=== PATIENT | male | born 1955 | race Two or more races ===

== ENCOUNTER 2021-08-12 09:34 | Inpatient (IN) | payer BC ==
[2021-08-12] MEDS ORDERED: Aspirin Chewable 81 MG TAB ONE (10:23)
[2021-08-12 10:29] LABS: #Basophils 0.1 thou/uL (0.0-0.2); #Eosinphils 0.2 thou/uL (0.0-0.7); #Lymphocytes 1.2 thou/uL (1.20-3.40); #Monocytes 0.7 thou/uL (0.11-0.59); #Neutrophils 3.7 thou/uL (1.40-6.50); %Basophils 2.1 % (0.0-1.0); %Eosinophils 2.7 % (0.0-10.0); %Lymphocytes 20.6 % (21.0-51.0); %Neutrophils 63.5 % (42.0-75.0); Hemoglobin 16.7 g/dL (14.0-18.0); Mean Corpuscular HGB CONC 30.6 g/dL (32.0-36.0); Mean Corpuscular Volume 88.2 fL (78.0-98.0); Mean Platelet Volume 9.4 fL (7.4-10.4); Platelet Count 154 thou/uL (130-400); RBC Distribution Width 14.7 % (11.5-14.5); Red Blood Cell (RBC) Count 6.19 mill/uL (4.70-6.10); White Blood Cell (WBC) Count 5.9 thou/uL (4.8-10.8)
[2021-08-12 11:01] LABS: ALT (SGPT) 55 U/L (8-55); AST (SGOT) 44 U/L (5-34); Albumin 4.1 g/dL (3.4-4.8); Alkaline Phosphatase 55 U/L (40-110); Anion Gap 11 mmol/L (10-20); BUN (Urea Nitrogen) 18 mg/dL (8.4-25.7); Bilirubin, Total 1.2 mg/dL (0.2-1.2); CK (CPK) 63 U/L (30-200); Calc. Creatinine Clearance 0 mL/min (70-130); Calcium 9.3 mg/dL (7.8-10.44); Carbon Dioxide 26 mmol/L (23-31); Chloride 103 mmol/L (98-107); Globulin 3.6 g/dL (2.4-3.5); Glucose 87 mg/dL (80-115); Potassium 4.1 mmol/L (3.5-5.1); Protein, Total 7.7 g/dL (5.8-8.1); Sodium 136 mmol/L (136-145)
[2021-08-12] MEDS ORDERED: Enoxaparin Sodium 40 MG/0.4 ML SYRINGE ONE (11:58)
[2021-08-12] MEDS ORDERED: Acetaminophen 325 MG TAB PO PRN (11:58)
[2021-08-12] MEDS ORDERED: Ondansetron PF 4 MG/2 ML Vial IVP PRN (11:58)
[2021-08-12] MEDS ORDERED: Enoxaparin Sodium 100 MG/ML SYRINGE ONE (11:58)
[2021-08-12] MEDS ORDERED: Nitroglycerin 0.4 MG TAB (25 Tab Bottle) SL PRN (12:05)
[2021-08-12] MEDS ORDERED: Metoprolol Tartrate 5 MG/5 ML VIAL IVP PRN (12:07)
[2021-08-12] MEDS ORDERED: Metoprolol Tartrate 25 MG TAB PO SCH ×3 (12:15→21:00)
[2021-08-12] MEDS ORDERED: Furosemide 20 MG/2 ML VIAL SLOW IVP SCH (12:15)
[2021-08-12] MEDS ORDERED: Metoprolol Tartrate 5 MG/5 ML VIAL ONE (12:49)
[2021-08-12] MEDS ORDERED: Furosemide 20 MG/2 ML VIAL ONE (12:49)
[2021-08-12 13:36] LABS: Troponin I 0.013 ng/mL (< 0.028)
[2021-08-12 15:24] LABS: Magnesium 1.8 mg/dL (1.6-2.6)
[2021-08-12] MEDS ORDERED: Magnesium 2 GM/50 ML 2 GM in Premix Bag 1 BAG IVPB SCH (16:45)
[2021-08-12 16:49] LABS: SARS-CoV-2 NAA Rapid Test Not Detected (NotDetected)
[2021-08-12] MEDS: HYDROcodone/Acetaminophen 10/325 mg Tablet PO PRN (17:02)
[2021-08-12] MEDS: Furosemide 40 MG/4 ML VIAL SLOW IVP SCH (18:28)
[2021-08-12 19:56] LABS: Troponin I 0.014 ng/mL (< 0.028)
[2021-08-12] MEDS: Famotidine 20 MG TAB PO SCH (20:24)
[2021-08-12] MEDS: Enoxaparin Sodium 40 MG/0.4 ML SYRINGE SC SCH (20:25)
[2021-08-12] MEDS: Enoxaparin Sodium 100 MG/ML SYRINGE SC SCH (20:25)
[2021-08-13] MEDS ORDERED: Melatonin 3 MG TAB PO SCH (00:30)
[2021-08-13 04:41] LABS: #Eosinphils 0.3 thou/uL (0.0-0.7); #Lymphocytes 1.7 thou/uL (1.20-3.40); #Monocytes 0.6 thou/uL (0.11-0.59); #Neutrophils 4.2 thou/uL (1.40-6.50); %Basophils 0.5 % (0.0-1.0); %Eosinophils 4.7 % (0.0-10.0); %Lymphocytes 24.6 % (21.0-51.0); %Monocytes 9.2 % (0.0-10.0); %Neutrophils 61.1 % (42.0-75.0); Mean Corpuscular HGB CONC 31.5 g/dL (32.0-36.0); Mean Corpuscular Hemoglobin 27.7 pg (27.0-31.0); Mean Platelet Volume 9.3 fL (7.4-10.4); Platelet Count 166 thou/uL (130-400); RBC Distribution Width 14.8 % (11.5-14.5); Red Blood Cell (RBC) Count 5.79 mill/uL (4.70-6.10); White Blood Cell (WBC) Count 6.8 thou/uL (4.8-10.8)
[2021-08-13 04:56] LABS: Anion Gap 13 mmol/L (10-20); BUN (Urea Nitrogen) 18 mg/dL (8.4-25.7); Calc. Creatinine Clearance 130 mL/min (70-130); Calcium 8.7 mg/dL (7.8-10.44); Carbon Dioxide 25 mmol/L (23-31); Chloride 104 mmol/L (98-107); Glucose 87 mg/dL (80-115); Potassium 4.1 mmol/L (3.5-5.1); Sodium 138 mmol/L (136-145)
[2021-08-13] MEDS: HYDROcodone/Acetaminophen 10/325 mg Tablet PO PRN ×2 (05:18→13:43)
[2021-08-13] MEDS: Furosemide 40 MG/4 ML VIAL SLOW IVP SCH ×2 (05:18→13:43)
[2021-08-13] MEDS: Aspirin 81 mg Enteric Coated Tablet PO SCH (07:43)
[2021-08-13] MEDS: Famotidine 20 MG TAB PO SCH ×2 (07:43→20:03)
[2021-08-13] MEDS: Enoxaparin Sodium 100 MG/ML SYRINGE SC SCH (07:48)
[2021-08-13] MEDS: Enoxaparin Sodium 40 MG/0.4 ML SYRINGE SC SCH (07:49)
[2021-08-13] MEDS ORDERED: Communication Order-Pharmacy FS SCH (12:45)
[2021-08-13] MEDS ORDERED: FLU VACC QS2021-22(6MOS UP)/PF 60 MCG/0.5 ML SYRINGE IM ONE (15:30)
[2021-08-13] MEDS: Carvedilol 6.25 MG TAB PO SCH (17:08)
[2021-08-14] MEDS: Aspirin 81 mg Enteric Coated Tablet PO SCH (06:23)
[2021-08-14] MEDS: Famotidine 20 MG TAB PO SCH ×2 (06:23→19:57)
[2021-08-14] MEDS: Carvedilol 6.25 MG TAB PO SCH ×2 (06:23→17:09)
[2021-08-14] MEDS ORDERED: Lidocaine 1% PF 5 ML VIAL ONE (06:27)
[2021-08-14] MEDS ORDERED: Lidocaine 1% (PF) 30 ML VIAL ONE (06:27)
[2021-08-14] MEDS ORDERED: Midazolam HCl 2 mg/2 ml Vial ONE (07:13)
[2021-08-14] MEDS ORDERED: Fentanyl 100 MCG/2 ML VIAL ONE (07:13)
[2021-08-14] MEDS: Spironolactone 25 MG TAB PO SCH (09:42)
[2021-08-14] MEDS: Furosemide 40 MG/4 ML VIAL SLOW IVP SCH ×2 (09:42→13:20)
[2021-08-14] MEDS ORDERED: Nitroglycerin 0.4 MG TAB (25 Tab Bottle) SL PRN (10:01)
[2021-08-14] MEDS ORDERED: Acetaminophen/Codeine 30-300mg Tablet PO PRN ×2 (10:01)
[2021-08-14] MEDS ORDERED: Sodium Chloride 0.9% 200 ML IV PRN (10:01)
[2021-08-14] MEDS: Lorazepam 1 MG TAB PO PRN (10:08)
[2021-08-14] MEDS ORDERED: Iopamidol 370 76% 100 ML VIAL ONE (11:42)
[2021-08-14] MEDS ORDERED: Diazepam 5 MG TAB PO PRN (17:14)
[2021-08-14] MEDS ORDERED: Communication Order-Pharmacy FS SCH (17:14)
[2021-08-14 18:16] LABS: Hemoglobin A1c 5.2 % (4.0-6.0)
[2021-08-14] MEDS ORDERED: Enoxaparin Sodium 40 MG/0.4 ML SYRINGE SC SCH (21:00)
[2021-08-14] MEDS ORDERED: Enoxaparin Sodium 100 MG/ML SYRINGE SC SCH (21:00)
[2021-08-15 04:36] LABS: #Eosinphils 0.2 thou/uL (0.0-0.7); #Lymphocytes 1.5 thou/uL (1.20-3.40); #Monocytes 0.6 thou/uL (0.11-0.59); #Neutrophils 4.2 thou/uL (1.40-6.50); %Basophils 0.6 % (0.0-1.0); %Eosinophils 3.7 % (0.0-10.0); %Lymphocytes 22.8 % (21.0-51.0); %Monocytes 9.6 % (0.0-10.0); %Neutrophils 63.4 % (42.0-75.0); Hemoglobin 16.5 g/dL (14.0-18.0); Mean Corpuscular HGB CONC 30.5 g/dL (32.0-36.0); Mean Corpuscular Hemoglobin 27.4 pg (27.0-31.0); Mean Corpuscular Volume 89.6 fL (78.0-98.0); Mean Platelet Volume 9.3 fL (7.4-10.4); Platelet Count 151 thou/uL (130-400); RBC Distribution Width 14.9 % (11.5-14.5); Red Blood Cell (RBC) Count 6.04 mill/uL (4.70-6.10); White Blood Cell (WBC) Count 6.7 thou/uL (4.8-10.8)
[2021-08-15 05:00] LABS: ALT (SGPT) 57 U/L (8-55); AST (SGOT) 47 U/L (5-34); Albumin 3.5 g/dL (3.4-4.8); Alkaline Phosphatase 44 U/L (40-110); Anion Gap 8 mmol/L (10-20); BUN (Urea Nitrogen) 16 mg/dL (8.4-25.7); Bilirubin, Total 0.8 mg/dL (0.2-1.2); Calc. Creatinine Clearance 151 mL/min (70-130); Calcium 8.1 mg/dL (7.8-10.44); Carbon Dioxide 27 mmol/L (23-31); Chloride 105 mmol/L (98-107); Globulin 3.2 g/dL (2.4-3.5); Glucose 74 mg/dL (80-115); Protein, Total 6.7 g/dL (5.8-8.1); Sodium 136 mmol/L (136-145)
[2021-08-15] MEDS: Carvedilol 6.25 MG TAB PO SCH (05:08)
[2021-08-15] MEDS: Lorazepam 1 MG TAB PO PRN (05:14)
[2021-08-15] MEDS: Furosemide 40 MG/4 ML VIAL SLOW IVP SCH (05:30)
[2021-08-15] MEDS: Spironolactone 25 MG TAB PO SCH (05:31)
[2021-08-15] MEDS ORDERED: Albumin 5% 500 ML ONE (06:21)
[2021-08-15] MEDS ORDERED: Bupivacaine PF 0.5% 30 ML VIAL ONE (06:21)
[2021-08-15] MEDS ORDERED: EPINEPHrine 1 MG/ML AMP ONE ×2 (06:21→07:43)
[2021-08-15] MEDS ORDERED: Dexamethasone 4 mg/ml Vial ONE (06:21)
[2021-08-15] MEDS ORDERED: Midazolam HCl 5 mg/5 ml Vial ONE (06:50)
[2021-08-15] MEDS ORDERED: Dexmedetomidine 200 MCG/2 ML VIAL ONE (06:50)
[2021-08-15] MEDS ORDERED: Fentanyl 100 MCG/2 ML VIAL ONE ×2 (06:50)
[2021-08-15] MEDS ORDERED: Heparin 10,000 UNITS/1 ML VIAL 30,000 UNITS in Sodium Chloride 0.9% 1,000 ML FS SCH (07:00)
[2021-08-15] MEDS ORDERED: Midazolam HCl 2 mg/2 ml Vial ONE (07:11)
[2021-08-15] MEDS ORDERED: Ondansetron ODT 4 MG TAB ONE (07:11)
[2021-08-15] MEDS ORDERED: ceFAZolin 2 GM/Dextrose 50 ML IVPB ONE (07:27)
[2021-08-15] MEDS ORDERED: PHENYLEPHRINE-NS 100 MCG/ML 10 ML SYRINGE ONE (07:29)
[2021-08-15] MEDS ORDERED: Milrinone 10 MG/10 ML VIAL ONE (07:29)
[2021-08-15] MEDS ORDERED: ceFAZolin 2 GM/Dextrose 50 ML 2 GM in Premix Bag 1 BAG IVPB SCH (07:30)
[2021-08-15] MEDS ORDERED: Thrombin 5000 UNITS/5 ML VIAL ONE (07:43)
[2021-08-15] MEDS ORDERED: Lidocaine 2% PF 100 mg/5 ml Syringe ONE (07:43)
[2021-08-15] MEDS ORDERED: Potassium Chloride 60 MEQ/30 ML VIAL ONE (07:43)
[2021-08-15] MEDS ORDERED: Magnesium Sulfate 1 GM/2 ML VIAL ONE (07:43)
[2021-08-15] MEDS ORDERED: Lidocaine 1% PF 5 ML VIAL ONE (07:43)
[2021-08-15] MEDS ORDERED: Cardioplegic Soln 1,000 ML BAG ONE (07:43)
[2021-08-15] MEDS ORDERED: Norepinephrine 4 MG/4 ML VIAL ONE (07:43)
[2021-08-15] MEDS ORDERED: Vecuronium 10 MG VIAL ONE (07:43)
[2021-08-15] MEDS ORDERED: Calcium Chloride 1 GM/10 ML Abboject SYRINGE ONE (07:43)
[2021-08-15] MEDS ORDERED: Aminocaproic Acid 5 GM/20 ML VIAL ONE (07:43)
[2021-08-15] MEDS ORDERED: Mannitol 12.5 GM/50 ML ONE (07:43)
[2021-08-15] MEDS ORDERED: Papaverine 60 MG/2 ML VIAL ONE (07:43)
[2021-08-15] MEDS ORDERED: Heparin 30,000 units/30 ml VIAL ONE (07:43)
[2021-08-15] MEDS ORDERED: Sodium Bicarb 50 MEQ/50 ML Abboject 8.4% SYRINGE ONE (07:43)
[2021-08-15] MEDS ORDERED: Heparin 5,000 UNITS/ML VIAL ONE (07:43)
[2021-08-15] MEDS ORDERED: Dexamethasone 20 MG/5 ML VIAL ONE (07:43)
[2021-08-15] MEDS ORDERED: Ondansetron PF 4 MG/2 ML Vial ONE (07:43)
[2021-08-15] MEDS ORDERED: PROPOFOL 200 MG/20 ML VIAL ONE (07:43)
[2021-08-15] MEDS ORDERED: Succinylcholine 200 MG/10 ml SYRINGE FS ONE (07:43)
[2021-08-15] MEDS ORDERED: Protamine Sulfate 250 MG/25 ML VIAL ONE (07:43)
[2021-08-15] MEDS ORDERED: Propofol 1,000 MG/100 ML VIAL IV ONE (12:15)
[2021-08-15] MEDS ORDERED: Potassium Chloride 20 MEQ/100 ML PREMIX BAG IVPB PRN (12:30)
[2021-08-15] MEDS ORDERED: Magnesium 2 GM/50 ML 2 GM in Premix Bag 1 BAG IVPB SCH (12:30)
[2021-08-15] MEDS ORDERED: traMADol HCl 50 MG TAB PO PRN ×2 (12:30)
[2021-08-15] MEDS ORDERED: Nitroglycerin 50 MG/250 ML BOT 250 ML IVPB PRN (12:30)
[2021-08-15] MEDS ORDERED: hydrALAZINE 20 MG/ML VIAL SLOW IVP PRN (12:30)
[2021-08-15] MEDS ORDERED: Fentanyl 100 MCG/2 ML VIAL SLOW IVP PRN (12:30)
[2021-08-15] MEDS ORDERED: Mag-Al 1200 mg/1200 mg/30 ML UDCUP PO PRN (12:30)
[2021-08-15] MEDS ORDERED: Guaifenesin DM 100-10/5 ML UDCUP PO PRN (12:30)
[2021-08-15] MEDS ORDERED: Hetastarch 6% 500 ML 500 ML IVPB PRN (12:30)
[2021-08-15] MEDS ORDERED: Ondansetron PF 4 MG/2 ML Vial IVP PRN (12:30)
[2021-08-15] MEDS ORDERED: Bisacodyl 10 MG SUPP PR PRN (12:30)
[2021-08-15] MEDS ORDERED: Norepinephrine 8 MG/0.9% NS 250 ML IVPB PRN (12:30)
[2021-08-15] MEDS ORDERED: D5 1/2 NS w/20 mEq KCL 1,000 ML IV SCH (12:30)
[2021-08-15] MEDS ORDERED: Morphine 4 MG/ML VIAL SLOW IVP PRN ×2 (12:45→12:54)
[2021-08-15] MEDS ORDERED: fentaNYL Citrate/PF 2,000 MCG in Sodium Chloride 0.9% 60 ML IV SCH (12:45)
[2021-08-15] MEDS ORDERED: Propofol BOLUS 1,000 MG/100 ML VIAL IV PRN (12:45)
[2021-08-15] MEDS ORDERED: DISCONTINUE PREVIOUS NARCOTIC PAIN MEDICATIONS AND BENZODIAZEPINES FS SCH (12:45)
[2021-08-15] MEDS ORDERED: Fentanyl BOLUS 250 ML IVPB PRN (12:45)
[2021-08-15] MEDS ORDERED: Propofol 1,000 MG/100 ML VIAL IV PRN (12:45)
[2021-08-15] MEDS ORDERED: Lorazepam 2 MG/ML VIAL SLOW IVP PRN (12:45)
[2021-08-15 12:48] LABS: #Eosinphils 0.1 thou/uL (0.0-0.7); #Lymphocytes 1.3 thou/uL (1.20-3.40); #Monocytes 0.8 thou/uL (0.11-0.59); #Neutrophils 17.7 thou/uL (1.40-6.50); %Basophils 0.1 % (0.0-1.0); %Eosinophils 0.5 % (0.0-10.0); %Lymphocytes 6.4 % (21.0-51.0); Hemoglobin 15.4 g/dL (14.0-18.0); Mean Corpuscular HGB CONC 29.8 g/dL (32.0-36.0); Mean Corpuscular Hemoglobin 26.8 pg (27.0-31.0); Mean Platelet Volume 9.5 fL (7.4-10.4); Platelet Count 153 thou/uL (130-400); RBC Distribution Width 14.9 % (11.5-14.5); Red Blood Cell (RBC) Count 5.75 mill/uL (4.70-6.10); White Blood Cell (WBC) Count 19.9 thou/uL (4.8-10.8)
[2021-08-15 12:49] LABS: Actual Bicarbonate (HCO3a) 20.4 mEq/L (22-28); Base Excess (BEa) -5.1 mEq/L (-2.0 to +3.0); CO2 Tension 39.6 mmHg (35.0-45.0); Calcium, Ionized (arterial) 1.06 mmol/L (1.12-1.30); Carboxyhemoglobin (COHb) 0.9 gm% (0.0-3.0); Hemoglobin (Hb) 15.6 g/dL (14.0-18.0); O2 Tension (PaO2), arterial 90.9 mmHg (> 80.0); Potassium - ABG Lab 4.27 mmol/L (3.70-5.30); pH, Arterial 7.33 (7.35-7.45)
[2021-08-15 12:50] LABS: Puncture Site ALINE
[2021-08-15 12:54] LABS: INR-International Normal Ratio 1.2; PTT 35.7 sec (22.9-36.1); Prothrombin Time 15.5 sec (12.0-14.7)
[2021-08-15 13:01] LABS: Hypochromia SLIGHT = 6-15 cells (100X) (0-5/hpf); MDiff Complete? YES; Platelet Morphology Comment Appears Adequate
[2021-08-15 13:07] LABS: Anion Gap 11 mmol/L (10-20); BUN (Urea Nitrogen) 17 mg/dL (8.4-25.7); Calc. Creatinine Clearance 130 mL/min (70-130); Calcium 7.5 mg/dL (7.8-10.44); Carbon Dioxide 24 mmol/L (23-31); Chloride 107 mmol/L (98-107); Glucose 142 mg/dL (80-115); Potassium 4.7 mmol/L (3.5-5.1); Sodium 137 mmol/L (136-145)
[2021-08-15] MEDS ORDERED: HUMULIN R 100 UNITS in Sodium Chloride 0.9% 100 ML IVPB SCH (13:15)
[2021-08-15] MEDS ORDERED: Insulin Regular 300 UNITS/3 ML VIAL SC PRN (13:15)
[2021-08-15] MEDS ORDERED: Dextrose 50% Abboject 50 ML SYRINGE SLOW IVP PRN (13:15)
[2021-08-15] MEDS ORDERED: Lantus 1000 UNITS/10 ML VIAL SC PRN (13:15)
[2021-08-15] MEDS ORDERED: Dextrose 5% in Water 1,000 ML IV PRN (13:15)
[2021-08-15] MEDS: Ketorolac Tromethamine 30 MG/ML VIAL IVP SCH ×3 (13:42→23:03)
[2021-08-15] MEDS: ceFAZolin 2 GM/Dextrose 50 ML 2 GM in Premix Bag 1 BAG IVPB SCH ×2 (16:10→23:03)
[2021-08-15 17:36] LABS: ALV-art Gradient 165.675 mmHg (0-20); Actual Bicarbonate (HCO3a) 19.9 mEq/L (22-28); Base Excess (BEa) -4.7 mEq/L (-2.0 to +3.0); CO2 Tension 35.7 mmHg (35.0-45.0); Calcium, Ionized (arterial) 1.05 mmol/L (1.12-1.30); Carboxyhemoglobin (COHb) 0.8 gm% (0.0-3.0); Hemoglobin (Hb) 16.1 g/dL (14.0-18.0); O2 Tension (PaO2), arterial 74.9 mmHg (> 80.0); Potassium - ABG Lab 4.61 mmol/L (3.70-5.30); Puncture Site ALINE; pH, Arterial 7.36 (7.35-7.45)
[2021-08-15 17:47] LABS: Potassium 4.9 mmol/L (3.5-5.1)
[2021-08-15] MEDS: Fentanyl 100 MCG/2 ML VIAL SLOW IVP PRN ×3 (17:58→22:07)
[2021-08-15] MEDS: Atorvastatin Calcium 40 MG TAB PO SCH (20:01)
[2021-08-15] MEDS: Acetaminophen 325 MG TAB PO PRN (20:10)
[2021-08-15] MEDS ORDERED: Famotidine/PF 20 mg/2ml Vial SLOW IVP SCH (21:00)
[2021-08-16] MEDS: Fentanyl 100 MCG/2 ML VIAL SLOW IVP PRN ×2 (01:50→04:12)
[2021-08-16 03:54] LABS: #Lymphocytes 0.8 thou/uL (1.20-3.40); #Monocytes 1.1 thou/uL (0.11-0.59); #Neutrophils 16.1 thou/uL (1.40-6.50); %Eosinophils 0.1 % (0.0-10.0); %Lymphocytes 4.3 % (21.0-51.0); %Monocytes 6.2 % (0.0-10.0); %Neutrophils 89.4 % (42.0-75.0); Hemoglobin 14.8 g/dL (14.0-18.0); Mean Corpuscular HGB CONC 30.9 g/dL (32.0-36.0); Mean Corpuscular Hemoglobin 27.7 pg (27.0-31.0); Mean Corpuscular Volume 89.7 fL (78.0-98.0); Platelet Count 134 thou/uL (130-400); RBC Distribution Width 14.7 % (11.5-14.5); Red Blood Cell (RBC) Count 5.34 mill/uL (4.70-6.10)
[2021-08-16 04:16] LABS: Anion Gap 13 mmol/L (10-20); BUN (Urea Nitrogen) 22 mg/dL (8.4-25.7); Calc. Creatinine Clearance 123 mL/min (70-130); Calcium 7.7 mg/dL (7.8-10.44); Carbon Dioxide 23 mmol/L (23-31); Chloride 105 mmol/L (98-107); Glucose 116 mg/dL (80-115); Potassium 4.8 mmol/L (3.5-5.1); Sodium 136 mmol/L (136-145)
[2021-08-16] MEDS ORDERED: ALPRAZolam 0.25 MG TAB PO PRN (05:17)
[2021-08-16] MEDS ORDERED: HYDROcodone/Acetaminophen 10/325 mg Tablet PO PRN (05:21)
[2021-08-16] MEDS: Ketorolac Tromethamine 30 MG/ML VIAL IVP SCH ×4 (05:37→23:39)
[2021-08-16] MEDS ORDERED: ceFAZolin Sodium/D5W 2 GM in Premix Bag 1 BAG IVPB SCH (08:00)
[2021-08-16] MEDS: Aspirin 325 MG TAB PO SCH (08:00)
[2021-08-16] MEDS: Magnesium 2 GM/50 ML 2 GM in Premix Bag 1 BAG IVPB SCH (08:01)
[2021-08-16] MEDS: Carvedilol 3.125 MG TAB PO SCH ×2 (08:28→16:44)
[2021-08-16] MEDS: ceFAZolin 2 GM/Dextrose 50 ML 2 GM in Premix Bag 1 BAG IVPB SCH (09:14)
[2021-08-16] MEDS ORDERED: Melatonin 3 MG TAB PO PRN (09:37)
[2021-08-16] MEDS ORDERED: Norepinephrine 8 MG/0.9% NS 250 ML IVPB SCH (09:45)
[2021-08-16] MEDS ORDERED: Amiodarone 450 MG in Dextrose 5% in Water 250 ML IVPB SCH (17:30)
[2021-08-16] MEDS: HYDROcodone/Acetaminophen 10/325 mg Tablet PO PRN ×2 (18:37→23:44)
[2021-08-16] MEDS: Atorvastatin Calcium 40 MG TAB PO SCH (20:12)
[2021-08-16] MEDS: Bisacodyl 5 MG TAB PO PRN (20:16)
[2021-08-17 04:43] LABS: #Lymphocytes 1.3 thou/uL (1.20-3.40); #Monocytes 1.3 thou/uL (0.11-0.59); #Neutrophils 11.9 thou/uL (1.40-6.50); %Basophils 0.1 % (0.0-1.0); %Eosinophils 0.2 % (0.0-10.0); %Lymphocytes 8.9 % (21.0-51.0); %Monocytes 8.8 % (0.0-10.0); Hemoglobin 12.1 g/dL (14.0-18.0); Mean Corpuscular HGB CONC 31.3 g/dL (32.0-36.0); Mean Corpuscular Hemoglobin 27.6 pg (27.0-31.0); Mean Corpuscular Volume 88.3 fL (78.0-98.0); Mean Platelet Volume 9.8 fL (7.4-10.4); Platelet Count 112 thou/uL (130-400); RBC Distribution Width 14.7 % (11.5-14.5); White Blood Cell (WBC) Count 14.5 thou/uL (4.8-10.8)
[2021-08-17] MEDS: HYDROcodone/Acetaminophen 10/325 mg Tablet PO PRN ×4 (04:48→20:53)
[2021-08-17 04:59] LABS: Anion Gap 9 mmol/L (10-20); BUN (Urea Nitrogen) 31 mg/dL (8.4-25.7); Calc. Creatinine Clearance 110 mL/min (70-130); Calcium 7.3 mg/dL (7.8-10.44); Carbon Dioxide 25 mmol/L (23-31); Chloride 103 mmol/L (98-107); Glucose 113 mg/dL (80-115); Potassium 4.1 mmol/L (3.5-5.1); Sodium 133 mmol/L (136-145)
[2021-08-17] MEDS: Ketorolac Tromethamine 30 MG/ML VIAL IVP SCH (05:38)
[2021-08-17] MEDS: Carvedilol 3.125 MG TAB PO SCH ×2 (08:20→13:29)
[2021-08-17] MEDS: Magnesium 2 GM/50 ML 2 GM in Premix Bag 1 BAG IVPB SCH (08:46)
[2021-08-17] MEDS: Aspirin 325 MG TAB PO SCH (08:46)
[2021-08-17] MEDS: Acetaminophen 325 MG TAB PO PRN (15:59)
[2021-08-17] MEDS: Bisacodyl 5 MG TAB PO PRN (15:59)
[2021-08-17] MEDS: Atorvastatin Calcium 40 MG TAB PO SCH (20:49)
[2021-08-18] MEDS: HYDROcodone/Acetaminophen 10/325 mg Tablet PO PRN ×4 (01:14→19:56)
[2021-08-18 04:39] LABS: #Eosinphils 0.2 thou/uL (0.0-0.7); #Lymphocytes 1.4 thou/uL (1.20-3.40); #Monocytes 1.2 thou/uL (0.11-0.59); #Neutrophils 10.6 thou/uL (1.40-6.50); %Basophils 0.1 % (0.0-1.0); %Eosinophils 1.4 % (0.0-10.0); %Lymphocytes 10.6 % (21.0-51.0); %Monocytes 8.7 % (0.0-10.0); %Neutrophils 79.2 % (42.0-75.0); Hemoglobin 11.7 g/dL (14.0-18.0); Mean Corpuscular HGB CONC 30.3 g/dL (32.0-36.0); Mean Corpuscular Hemoglobin 26.7 pg (27.0-31.0); Mean Platelet Volume 6.7 fL (7.4-10.4); Platelet Count 126 thou/uL (130-400); RBC Distribution Width 14.9 % (11.5-14.5); White Blood Cell (WBC) Count 13.4 thou/uL (4.8-10.8)
[2021-08-18 04:55] LABS: Anion Gap 10 mmol/L (10-20); BUN (Urea Nitrogen) 23 mg/dL (8.4-25.7); Calc. Creatinine Clearance 174 mL/min (70-130); Calcium 7.5 mg/dL (7.8-10.44); Carbon Dioxide 24 mmol/L (23-31); Cardiac Risk 3.8 (Less than 4.5); Chloride 102 mmol/L (98-107); Cholesterol 84 mg/dl (< 200 Desired); Glucose 97 mg/dL (80-115); HDL Cholesterol 22 mg/dL (>60 Neg Risk); LDL Cholesterol, Calculated 49 mg/dL; Potassium 4.5 mmol/L (3.5-5.1); Sodium 131 mmol/L (136-145); Triglycerides 64 mg/dL (Less than 150)
[2021-08-18] MEDS: Aspirin 325 MG TAB PO SCH (09:13)
[2021-08-18] MEDS: Carvedilol 3.125 MG TAB PO SCH (09:13)
[2021-08-18] MEDS: Bisacodyl 5 MG TAB PO PRN (09:38)
[2021-08-18] MEDS: Furosemide 20 MG TAB PO SCH (14:02)
[2021-08-18] MEDS: Potassium Chloride 10 MEQ TAB PO SCH (17:49)
[2021-08-18] MEDS: Amiodarone 200 MG TAB PO SCH (19:59)
[2021-08-18] MEDS: Atorvastatin Calcium 40 MG TAB PO SCH (19:59)
[2021-08-19] MEDS: HYDROcodone/Acetaminophen 10/325 mg Tablet PO PRN ×3 (01:07→17:11)
[2021-08-19 05:29] LABS: #Eosinphils 0.4 thou/uL (0.0-0.7); #Lymphocytes 1.3 thou/uL (1.20-3.40); #Monocytes 0.9 thou/uL (0.11-0.59); #Neutrophils 9.1 thou/uL (1.40-6.50); %Basophils 0.3 % (0.0-1.0); %Eosinophils 3.6 % (0.0-10.0); %Lymphocytes 11.2 % (21.0-51.0); %Monocytes 7.7 % (0.0-10.0); %Neutrophils 77.3 % (42.0-75.0); Hemoglobin 11.5 g/dL (14.0-18.0); Mean Corpuscular HGB CONC 31.4 g/dL (32.0-36.0); Mean Corpuscular Hemoglobin 28.3 pg (27.0-31.0); Mean Corpuscular Volume 90.1 fL (78.0-98.0); Platelet Count 151 thou/uL (130-400); RBC Distribution Width 14.9 % (11.5-14.5); Red Blood Cell (RBC) Count 4.07 mill/uL (4.70-6.10); White Blood Cell (WBC) Count 11.8 thou/uL (4.8-10.8)
[2021-08-19 05:45] LABS: Anion Gap 11 mmol/L (10-20); BUN (Urea Nitrogen) 23 mg/dL (8.4-25.7); Calc. Creatinine Clearance 183 mL/min (70-130); Calcium 7.7 mg/dL (7.8-10.44); Carbon Dioxide 24 mmol/L (23-31); Chloride 103 mmol/L (98-107); Glucose 112 mg/dL (80-115); Potassium 4.1 mmol/L (3.5-5.1); Sodium 134 mmol/L (136-145)
[2021-08-19] MEDS: Amiodarone 200 MG TAB PO SCH ×2 (09:00→21:05)
[2021-08-19] MEDS: Furosemide 20 MG TAB PO SCH ×2 (09:21→14:03)
[2021-08-19] MEDS: Potassium Chloride 10 MEQ TAB PO SCH ×2 (09:21→17:11)
[2021-08-19] MEDS: Aspirin 325 MG TAB PO SCH (09:24)
[2021-08-19 12:40] LABS: SARS-CoV-2 PCR by NAA Not Detected (NotDetected)
[2021-08-19] MEDS ORDERED: diphenhydrAMINE 25 MG CAP PO PRN (16:05)
[2021-08-19] MEDS ORDERED: Guaifenesin DM 100-10/5 ML UDCUP PO PRN (16:05)
[2021-08-19] MEDS ORDERED: Mag-Al 1200 mg/1200 mg/30 ML UDCUP PO PRN (16:05)
[2021-08-19] MEDS ORDERED: Zolpidem Tartrate 5 MG TAB PO PRN (16:05)
[2021-08-19] MEDS ORDERED: Bisacodyl 5 MG TAB PO PRN (16:05)
[2021-08-19] MEDS ORDERED: Milk Of Magnesia 30 ML UDCUP PO PRN ×2 (16:05→16:17)
[2021-08-19] MEDS ORDERED: Bisacodyl 10 MG SUPP PR PRN (16:05)
[2021-08-19] MEDS ORDERED: Metolazone 5 MG TAB PO SCH (16:05)
[2021-08-19] MEDS ORDERED: Mineral Oil ENEMA PR PRN (16:05)
[2021-08-19] MEDS ORDERED: Nitroglycerin 0.4 MG TAB (25 Tab Bottle) SL PRN (16:05)
[2021-08-19] MEDS ORDERED: Carvedilol 3.125 MG TAB PO SCH (17:00)
[2021-08-19] MEDS: Atorvastatin Calcium 40 MG TAB PO SCH (21:04)
[2021-08-20] MEDS: HYDROcodone/Acetaminophen 10/325 mg Tablet PO PRN ×4 (01:08→21:04)
[2021-08-20] MEDS: Aspirin 325 MG TAB PO SCH (07:33)
[2021-08-20] MEDS: Furosemide 20 MG TAB PO SCH ×2 (07:34→16:05)
[2021-08-20] MEDS: Potassium Chloride 10 MEQ TAB PO SCH ×2 (07:34→16:05)
[2021-08-20] MEDS: Amiodarone 200 MG TAB PO SCH (07:34)
[2021-08-20] MEDS ORDERED: Aspirin 325 mg Enteric Coated Tablet PO SCH (09:00)
[2021-08-20] MEDS: Carvedilol 3.125 MG TAB PO SCH ×2 (10:41→16:01)
[2021-08-20] MEDS: Bisacodyl 5 MG TAB PO PRN (16:20)
[2021-08-20] MEDS: Atorvastatin Calcium 40 MG TAB PO SCH (21:03)
[2021-08-21] MEDS: HYDROcodone/Acetaminophen 10/325 mg Tablet PO PRN ×3 (01:56→16:02)
[2021-08-21] MEDS: Potassium Chloride 10 MEQ TAB PO SCH ×2 (09:58→16:02)
[2021-08-21] MEDS: Furosemide 20 MG TAB PO SCH ×2 (09:58→15:49)
[2021-08-21] MEDS: Aspirin 325 MG TAB PO SCH (09:59)
[2021-08-21 14:55] LABS: Actual Bicarbonate (HCO3a) 21.8 mEq/L (22-28); Analyzer IN Cardio OR; CO2 Tension 42.2 mmHg (35.0-45.0); Calcium, Ionized (arterial) 1.09 mmol/L (1.12-1.30); Carboxyhemoglobin (COHb) 1.7 gm% (0.0-3.0); Hemoglobin (Hb) 16.8 g/dL (14.0-18.0); O2 Tension (PaO2), arterial 89.9 mmHg (> 80.0); Potassium - ABG Lab 4.07 mmol/L (3.70-5.30); pH, Arterial 7.33 (7.35-7.45)
[2021-08-21 14:56] LABS: Actual Bicarbonate (HCO3a) 21.7 mEq/L (22-28); Analyzer IN Cardio OR; Base Excess (BEa) -3.3 mEq/L (-2.0 to +3.0); Calcium, Ionized (arterial) 0.98 mmol/L (1.12-1.30); Hemoglobin (Hb) 14.1 g/dL (14.0-18.0); O2 Tension (PaO2), arterial 475.5 mmHg (> 80.0); Potassium - ABG Lab 5.12 mmol/L (3.70-5.30); pH, Arterial 7.36 (7.35-7.45)
[2021-08-21 14:56] LABS: Actual Bicarbonate (HCO3a) 19.9 mEq/L (22-28); Analyzer IN Cardio OR; Base Excess (BEa) -5.7 mEq/L (-2.0 to +3.0); CO2 Tension 39.7 mmHg (35.0-45.0); Calcium, Ionized (arterial) 1.07 mmol/L (1.12-1.30); Carboxyhemoglobin (COHb) 0.9 gm% (0.0-3.0); Hemoglobin (Hb) 16.2 g/dL (14.0-18.0); O2 Tension (PaO2), arterial 235.3 mmHg (> 80.0); Potassium - ABG Lab 4.43 mmol/L (3.70-5.30); pH, Arterial 7.32 (7.35-7.45)
[2021-08-21 14:57] LABS: Actual Bicarbonate (HCO3a) 20.7 mEq/L (22-28); Analyzer IN Cardio OR; Base Excess (BEa) -4.4 mEq/L (-2.0 to +3.0); Calcium, Ionized (arterial) 1.04 mmol/L (1.12-1.30); Carboxyhemoglobin (COHb) 0.9 gm% (0.0-3.0); O2 Tension (PaO2), arterial 87.3 mmHg (> 80.0); Potassium - ABG Lab 4.69 mmol/L (3.70-5.30); pH, Arterial 7.35 (7.35-7.45)
[2021-08-21 14:57] LABS: Actual Bicarbonate (HCO3a) 21.7 mEq/L (22-28); Analyzer IN Cardio OR; Base Excess (BEa) -3.1 mEq/L (-2.0 to +3.0); CO2 Tension 37.9 mmHg (35.0-45.0); Calcium, Ionized (arterial) 1.03 mmol/L (1.12-1.30); Hemoglobin (Hb) 14.1 g/dL (14.0-18.0); O2 Tension (PaO2), arterial 83.5 mmHg (> 80.0); Potassium - ABG Lab 4.74 mmol/L (3.70-5.30); pH, Arterial 7.38 (7.35-7.45)
[2021-08-21 14:57] LABS: Actual Bicarbonate (HCO3v) 22 mEq/L (22-28); Analyzer IN Cardio OR; Base Excess -3.8 mEq/L (-2.0 to +3.0); Calcium, Ionized (venous) 0.98 mmol/L (1.16-1.32); Chloride (VBG) 103 mmol/L (98-106); Hemoglobin (Hb) 13.6 g/dL (13.1-17.2); Potassium (VBG) 4.81 mmol/L (3.70-5.30); Sodium 132.9 mmol/L (133-146); pH (venous) 7.32 (7.32-7.43)
[2021-08-21 14:57] LABS: Actual Bicarbonate (HCO3a) 20.2 mEq/L (22-28); Analyzer IN Cardio OR; Base Excess (BEa) -4.6 mEq/L (-2.0 to +3.0); CO2 Tension 36.7 mmHg (35.0-45.0); Carboxyhemoglobin (COHb) 0.9 gm% (0.0-3.0); Hemoglobin (Hb) 13.8 g/dL (14.0-18.0); O2 Tension (PaO2), arterial 296.3 mmHg (> 80.0); Potassium - ABG Lab 5.06 mmol/L (3.70-5.30); pH, Arterial 7.36 (7.35-7.45)
[2021-08-21 14:58] LABS: Puncture Site Arterial Line
[2021-08-21 14:58] LABS: Puncture Site Arterial Line
[2021-08-21 14:59] LABS: Puncture Site Arterial Line
[2021-08-21 14:59] LABS: Puncture Site Arterial Line
[2021-08-21 15:00] LABS: Puncture Site Arterial Line
[2021-08-21 15:00] LABS: Puncture Site Arterial Line
[2021-08-21] MEDS: Apixaban 5 MG TAB PO SCH (20:30)
[2021-08-21] MEDS: Atorvastatin Calcium 40 MG TAB PO SCH (20:30)
[2021-08-22 04:33] LABS: #Eosinphils 0.4 thou/uL (0.0-0.7); #Lymphocytes 1.1 thou/uL (1.20-3.40); #Monocytes 1.1 thou/uL (0.11-0.59); #Neutrophils 8.8 thou/uL (1.40-6.50); %Basophils 0.1 % (0.0-1.0); %Eosinophils 3.6 % (0.0-10.0); %Lymphocytes 9.9 % (21.0-51.0); %Monocytes 9.6 % (0.0-10.0); %Neutrophils 76.8 % (42.0-75.0); Hemoglobin 12.8 g/dL (14.0-18.0); Mean Corpuscular HGB CONC 30.9 g/dL (32.0-36.0); Mean Corpuscular Hemoglobin 26.9 pg (27.0-31.0); Mean Corpuscular Volume 87.3 fL (78.0-98.0); Platelet Count 247 thou/uL (130-400); RBC Distribution Width 15.2 % (11.5-14.5); Red Blood Cell (RBC) Count 4.75 mill/uL (4.70-6.10); White Blood Cell (WBC) Count 11.5 thou/uL (4.8-10.8)
[2021-08-22] MEDS: HYDROcodone/Acetaminophen 10/325 mg Tablet PO PRN ×3 (04:44→21:15)
[2021-08-22 04:51] LABS: Anion Gap 14 mmol/L (10-20); BUN (Urea Nitrogen) 23 mg/dL (8.4-25.7); Calc. Creatinine Clearance 121 mL/min (70-130); Calcium 8.6 mg/dL (7.8-10.44); Carbon Dioxide 26 mmol/L (23-31); Chloride 95 mmol/L (98-107); Glucose 113 mg/dL (80-115); Sodium 131 mmol/L (136-145)
[2021-08-22 09:30] VITALS: BMI 37.9
[2021-08-22] MEDS: Empagliflozin 10 MG TAB PO SCH (09:42)
[2021-08-22] MEDS: Aspirin 325 MG TAB PO SCH (09:42)
[2021-08-22] MEDS: Potassium Chloride 10 MEQ TAB PO SCH ×2 (09:42→17:18)
[2021-08-22] MEDS: Apixaban 5 MG TAB PO SCH (09:43)
[2021-08-22] MEDS: Furosemide 20 MG TAB PO SCH ×2 (09:44→15:16)
[2021-08-22] MEDS: Carvedilol 3.125 MG TAB PO SCH (17:18)
[2021-08-22] MEDS: Atorvastatin Calcium 40 MG TAB PO SCH (21:16)
[2021-08-23] MEDS: HYDROcodone/Acetaminophen 10/325 mg Tablet PO PRN ×2 (03:19→09:46)
[2021-08-23] MEDS: Aspirin 325 MG TAB PO SCH (09:20)
[2021-08-23] MEDS: Furosemide 20 MG TAB PO SCH ×2 (09:20→14:24)
[2021-08-23] MEDS: Empagliflozin 10 MG TAB PO SCH (09:21)
[2021-08-23] MEDS: Potassium Chloride 10 MEQ TAB PO SCH (09:22)
[2021-08-23] MEDS: Carvedilol 3.125 MG TAB PO SCH (09:26)
[2021-08-23 12:50] VITALS: TEMP 97.8
[2021-08-23 13:28] VITALS: BP 126/65
== END 2021-08-23 15:10 | disposition home or self-care (01) | DRG 233 ==
LOC: ERS 09:34 → 2SW 14:13 → CCU 08-15 08:26 → 2NO 08-20 09:36
PROVIDERS: ADMIT Emergency Medicine; ATTEND Hospitalist
PROC: 3E033XZ Introduction of Vasopressor into Peripheral Vein, Percutaneous Approach (ICD-10-PCS; 2021-08-13)
PROC: 4A023N7 Measurement of Cardiac Sampling and Pressure, Left Heart, Percutaneous Approach (ICD-10-PCS; 2021-08-14)
PROC: B2151ZZ Fluoroscopy of Left Heart using Low Osmolar Contrast (ICD-10-PCS; 2021-08-14)
PROC: B2111ZZ Fluoroscopy of Multiple Coronary Arteries using Low Osmolar Contrast (ICD-10-PCS; 2021-08-14)
PROC: 02580ZZ Destruction of Conduction Mechanism, Open Approach (ICD-10-PCS; principal; 2021-08-15)
PROC: 021109W Bypass Coronary Artery, Two Arteries from Aorta with Autologous Venous Tissue, Open Approach (ICD-10-PCS; 2021-08-15)
PROC: 02100Z9 Bypass Coronary Artery, One Artery from Left Internal Mammary, Open Approach (ICD-10-PCS; 2021-08-15)
PROC: 06BQ4ZZ Excision of Left Saphenous Vein, Percutaneous Endoscopic Approach (ICD-10-PCS; 2021-08-15)
PROC: 5A1221Z Performance of Cardiac Output, Continuous (ICD-10-PCS; 2021-08-15)
PROC: 02L70CK Occlusion of Left Atrial Appendage with Extraluminal Device, Open Approach (ICD-10-PCS; 2021-08-15)
DX: I48.19 Other persistent atrial fibrillation (principal); I50.23 Acute on chronic systolic (congestive) heart failure; Z20.822 Contact with and (suspected) exposure to COVID-19; Z23 Encounter for immunization; I42.0 Dilated cardiomyopathy; I11.0 Hypertensive heart disease with heart failure; I25.10 Atherosclerotic heart disease of native coronary artery without angina pectoris; E78.5 Hyperlipidemia, unspecified; E11.9 Type 2 diabetes mellitus without complications; G89.29 Other chronic pain; M54.9 Dorsalgia, unspecified; I16.0 Hypertensive urgency; F10.10 Alcohol abuse, uncomplicated; I08.1 Rheumatic disorders of both mitral and tricuspid valves; I25.5 Ischemic cardiomyopathy; E66.01 Morbid (severe) obesity due to excess calories; F41.9 Anxiety disorder, unspecified; I95.89 Other hypotension; Z68.37 Body mass index [BMI] 37.0-37.9, adult; Z78.1 Physical restraint status; Z28.21 Immunization not carried out because of patient refusal; Z98.890 Other specified postprocedural states; Z82.49 Family history of ischemic heart disease and other diseases of the circulatory system; Z79.891 Long term (current) use of opiate analgesic; Z87.01 Personal history of pneumonia (recurrent); Z79.899 Other long term (current) drug therapy
CPT/HCPCS: 36415; 36416; 36430; 71045; 71275; 78451; 80048; 80053; 80061; 82550; 82805; 83036; 83735; 83880; 84484; 85025; 85610; 85730; 86850; 86900; 86901; 90471; 90732; 93005; 93010; 93306; 93458; 93798; 94002; 94150; 96372; 96374; 96375; 99152; 99153; A9500; C1713; C1751; C1776; G0009; J0171; J0282; J0690; J1100; J1642; J1644; J1650; J1815; J1885; J1940; J2001; J2150; J2250; J2260; J2405; J2440; J2704; J2720; J3010; J3370; J3475; J3480; J3490; J7070; P9045; Q0162; Q9967; S0017; S0020; S0028; U0002; U0003; U0005

== ENCOUNTER 2021-12-06 14:14 | Outpatient (CLI) | payer BC ==
[~2021-12-06 14:14] MED LIST: ISOVUE-370 76%-LOCM 1 ML ONE
== END 2021-12-06 14:15 | disposition home or self-care (01) ==
LOC: BICCT 14:14
PROVIDERS: ATTEND Family Medicine
DX: R31.29 Other microscopic hematuria (principal); N20.0 Calculus of kidney; N28.1 Cyst of kidney, acquired; I71.4 Abdominal aortic aneurysm, without rupture; Z98.890 Other specified postprocedural states
CPT/HCPCS: 74178; 82565; Q9966

== ENCOUNTER 2022-12-05 08:25 | Outpatient (CLI) | payer OTHER | END 2022-12-05 08:26 | disposition home or self-care (01) | LOC: BICULT 08:25 | DX: Z01.89 Encounter for other specified special examinations (principal); I71.41 Pararenal abdominal aortic aneurysm, without rupture; B18.2 Chronic viral hepatitis C | CPT/HCPCS: 76705; 76775 ==